=== PATIENT | male | born 1945 | race Caucasian/White ===

== ENCOUNTER 2019-06-16 21:44 | Emergency (ER) | payer MEDICARE ==
[~2019-06-16] VITALS: Ht 182.9 cm; Wt 122.5 kg
[~2019-06-16 21:44] MED LIST: AMITRIPTYLINE H25 MG PO; LANSOPRAZOLE30 MG PO; LIPITOR40 MG PO; LISINOPRIL10 MG PO
--- OUTSIDE RECORDS SUMMARY | 2019-06-16 21:48 | XMS REPORT | Encounter Summary ---
Author Organization Unknown Address [address] [place] [address] Phone [phone] Care Team Providers Care Vocational Teacher Name Role Phone Dr. Mike Farias 3 [phone] Jacques Figueroa MD 107 [phone] Niraj Castillo DPM 120 [phone] Reason for Visit other - see typed reason Instructions 1. Restless legs restless legs syndrome: care instructi ons ropinirole 3 mg tablet 2. Atrial fibrillation 3. Hyperlipidemia high cholesterol: care instructions 4. Thrombocytopenic disorder 5. Type 2 diabetes mellitus 6. Benign essential hypertension 7. Body mass index 30+ - obesity body mass index: care instructions learning about healthy weight Discussion Note: None recorded. Plan of Care Reminders Provider Appointments Return to Office on or around 06/18/2018 Mike Mondragon MD Est Patient 09/06/2018 4:30PM Mike Mondragon MD Lab None recorded. Referral None recorded. Procedures None recorded. Surgeries None recorded. Imaging None recorded. Medications Name Start Date amitriptyline 10 mg tablet TAKE 1 TABLET BY MOUTH EVERY DAY Eliquis 5 mg tablet Take 1 tablet twice a day by oral route. glipizide 5 mg tablet Take 0.5 tablets twice a day by oral route. lisinopril 20 mg tablet Take 1 tablet every day by oral route. metoprolol tartrate 50 mg tablet Take 0.5 tablets twice a day by oral route as directed for 90 days. omeprazole 40 mg capsule,delayed release TAKE 1 CAPSULE BY MOUTH TWICE DAILY DIRECTED ropinirole 2 mg tablet 1 HS ropinirole 3 mg tablet Take 1 tablet as needed by oral route at bedtime for 30 days. Medications Administered None recorded. Vitals Height Weight BMI Blood Pressure 6 ft 266.2 lbs 36.1 kg/m2 116/72 mm[Hg] Lab Results None recorded. Allergies Code Code System Name Reaction Severity Status Onset NKDA Problems Name Status Onset Date Source Hyperlipidemia Active 10/27/2015 Anxiety Active 10/27/2015 Hypertensive Disorder Active 10/27/2015 Gastroesophageal Reflux Disease Active 10/27/2015 Chronic Back Pain Active 10/27/2015 Paroxysmal Atrial Fibrillation Active 08/31/2016 Procedures Date Name Performed by 02/07/2014 Cataract Surgery Complex Information not available 02/08/2008 Colonoscopy with Biopsy Information not available 02/08/1952 Appendectomy Information not avai lable Vaccine List Vaccine Type influenza, high dose seasonal 02/17/20160.5 mL pneumococcal conjugate PCV 13 02/17/2016 pneumococcal polysaccharide PPV23 03/23/20170.5 mL zoster 08/31/20160.65 mL Social History Smoking Status Never Smoker Past Encounters 06/09/2018 Restless Legs; Atrial Fibrillation; Hyperlipidemia; Thrombocytopenic Disorder; Type 2 Diabetes Mellitus; Benign Essential Hypertension; Body Mass Index 30+ - Obesity Mike René Mondragon MD: [address] [place] [address], Ph. History of Present Illness Note:F/u on dm, HLD and HTN. Glucose readings at home 100s. Non compliant with meds. Lost 4 lbs since last visit. <div>Recently diagnosed with RLS by the sleep specialist, doing better, however pt thinks that he needs a higher dosage of ropinirole. No side effects with meds.</div> Review of Systems Comprehensive General Adult ROS Reported By: Patient Constitutional: Constitutional: no fever Eyes: Eyes: no vision change Cardiovascular: Cardiovascular: no chest jailyn n, no shortness of breath when walking, no shortness of breath when lying down, no palpitations, no lightheadedness Respiratory: Respiratory: no cough, no wh eezing, no shortness of breath Gastrointestinal: Gastrointestinal: no abdomin al pain, no nausea, no vomiting, no constipation, no diarrhea Musculoskeletal: Musculoskeletal: no swelling in the extremities Integumentary: Skin: no rashes Neurologic: Neurologic: no loss of consc iousness, no headaches Physical Exam General Adult Exam (male) Reported By: Patient Constitutional: General Appearance: healthy- appearing, obese. Level of Distress: NAD Psychiatric: Insight: good judgement. Men marko Status: active and alert, normal mood, normal affect. Orientation: to time, to place, to person. Memory: recent memory normal, remote memory normal Eyes: Lids and Conjunctivae: non-i njected, no discharge ENMT: Oropharynx: moist mucous mem branes Neck: Neck: supple, trachea midlin e. Thyroid: no enlargement, non-tender Lungs: Auscultation: breath sounds normal Cardiovascular: Heart Auscultation: normal S 1, normal S2, no murmurs, irregularly irregular. Neck vessels: no carotid bruits Musculoskeletal:: Motor Strength and Tone: nor mal tone. Joints, Bones, and Muscles: normal movement of all extremities, no malalignment. Extremities: no edema
--- OUTSIDE RECORDS SUMMARY | 2019-06-16 21:48 | XMS REPORT | Encounter Summary ---
Author Organization Unknown Address [address] [place] [address] Phone [phone] Care Team Providers Care Climate Change Analyst Name Role Phone Dr. Mike Farias 3 [phone] Jacques Figueroa MD 107 [phone] Niraj Castillo DPM 120 [phone] Reason for Visit Hypertensive disorder Instructions 1. Hypertensive disorder 2. Body mass index 30+ - obesity body mass index: care instructions learning about healthy weight 3. Influenza vaccination declined Discussion Note: None recorded. Plan of Care Reminders Provider Appointments Return to Office on or around 02/28/2019 Mike Mondragon MD Lab None recorded. Referral None recorded. Procedures None recorded. Surgeries None recorded. Imaging None recorded. Medications Name Start Date amitriptyline 10 mg tablet TAKE 1 TABLET BY MOUTH EVERY DAY carvedilol 6.25 mg tablet Take 1 tablet twice a day by oral route for 90 days. Eliquis 5 mg tablet Take 1 tablet twice a day by oral route. glipizide 5 mg tablet Take 0.5 tablets twice a day by oral route. lisinopril 30 mg tablet omeprazole 40 mg capsule,delayed release Take 1 capsule every day by oral route. ropinirole 3 mg tablet TAKE 1 TABLET BY MOUTH EVERY DAY AT BEDTIME NEEDED Medications Administered None recorded. Vitals Height Weight BMI Blood Pressure 6 ft 274 lbs 37.2 kg/m2 126/86 mm[Hg] Results Lab Results None recorded. Allergies Code Code System Name Reaction Severity Status Onset NKDA Problems Name Status Onset Date Source Hyperlipidemia Active 10/27/2015 Anxiety Active 10/27/2015 Hypertensive Disorder Active 10/27/2015 Gastroesophageal Reflux Disease Active 10/27/2015 Chronic Back Pain Active 10/27/2015 Paroxysmal Atrial Fibrillation Active 08/31/2016 Morbid Obesity Active 11/17/2018 Extreme Obesity with Alveolar Hypoventilation Active Thrombocytopenic Disorder Active 11/17/2018 Depressive Disorder Active 11/17/2018 Peripheral Vascular Disease Active 11/17/2018 Chronic Kidney Disease Stage 3 Active 11/17/2018 Procedures Date Name Performed by 02/07/2014 Cataract Surgery Complex Information not available 02/08/1952 Appendectomy Information not avai lable Colonoscopy Information not avai lable Colonoscopy Information not avai lable Colonoscopy with Biopsy Information not available Vaccine List Vaccine Type influenza, high dose seasonal 02/17/20160.5 mL pneumococcal conjugate PCV 13 02/17/2016 pneumococcal polysaccharide PPV23 03/23/20170.5 mL zoster 08/31/20160.65 mL Social History Tobacco Smoking Status Never Smoker Past Encounters 11/24/2018 Hypertensive Disorder; Body Mass Index 30+ - Obesity; Influenza Vaccination Declined Mike Mondragon MD: [address] [place] [address], Ph. 11/08/2018 Hypertensive Disorder Mike Mondragon MD: [address] [place] [address], Ph. History of Present Illness Note:F/u on htn. Compliant with meds. Non compliant with diet or exercise. BPs at home 150s/90s. No side effects with meds. No new concerns. Pt was switched to carvedilol by the mirror framer. Metoprolol was d/c. Review of Systems Comprehensive General Adult ROS Reported By: Patient Cardiovascular: Cardiovascular: no chest jailyn n, no palpitations, no lightheadedness Respiratory: Respiratory: no cough, no wh eezing, no shortness of breath Gastrointestinal: Gastrointestinal: no abdomin al pain, no nausea, no vomiting, no constipation, no diarrhea Musculoskeletal: Musculoskeletal: no muscle a ches, no swelling in the extremities Neurologic: Neurologic: no loss of consc iousness, no headaches Psychiatric: Psych: no depression, no alc ohol abuse, no anxiety, no suicidal thoughts Endocrine: Endocrine: no fatigue Physical Exam General Adult Exam (male) Reported [...] midlin e. Thyroid: no enlargement, non-tender Lungs: Respiratory effort: no dyspn ea. Auscultation: breath sounds normal Cardiovascular: Heart Auscultation: normal S 1, normal S2, no murmurs, irregularly irregular. Neck vessels: no carotid bruits Musculoskeletal:: Joints, Bones, and Muscles: normal movement of all extremities, no bony abnormalities, no malalignment. Extremities: no edema Neurologic: Coordination and Cerebellum: no tremor
--- OUTSIDE RECORDS SUMMARY | 2019-06-16 21:48 | XMS REPORT ---
Author Author [facility] Organization [facility] Address Unknown Phone Unavailable Care Team Providers Care Sap Portal Consultant Name Role Phone Unavailable Unavailable Problems Condition Name Condition Details Condition Category Status Onset Date Resolution Date Last Treatment Date Treating Clinician Comments Morbid obesity Morbid Obesity Problem Active 2018-11-17 00:00:00 Extreme obesity with alveolar hypoventilation Extreme Obesity with Alveolar Hypoventilation Problem Active 2018-11-17 00:00:00 Thrombocytopenic disorder Thrombocytopenic Disorder Problem Ac tive 2018-11-17 00:00:00 Depressive disorder Depressive Disorder Problem Active 2018-11-17 00:00 :00 Peripheral vascular disease Peripheral Vascular Disease Problem Active 2018-11-17 00:00:00 Chronic kidney disease stage 3 Chronic Kidney Disease Stage 3 Probl em Active 2018-11-17 00:00:00 Paroxysmal atrial fibrillation Paroxysmal Atrial Fibrillation Probl em Active 2016-08-31 00:00:00 Hyperlipidemia Hyperlipidemia Problem Active 2015-10-27 00:00:00 Anxiety Anxiety Problem Active 2015-10-27 00:00:00 Hypertensive disorder Hypertensive Disorder Problem Active 201 07-16-18 00:00:00 Gastroesophageal reflux disease Gastroesophageal Reflux Disease Pro blem Active 2015-10-27 00:00:00 Chronic back pain Chronic Back Pain Problem Active 2015-10-27 00:00:00 Allergies, Adverse Reactions, Alerts This patient has no known allergies or adverse reactions. Medications Ordered Medication Name Filled Medication Name Start Date Stop Da te Current Medication? Ordering Clinician Indication Dosage Frequency Signature (SIG) Comments Components amitriptyline 10 mg tablet TAKE 1 TABLET BY MOUTH EVER Y DAY amitriptyline 10 mg tablet TAKE 1 TABLET BY MOUTH EVERY DAY No amitriptyline 10 mg tablet TAKE 1 TABLET BY MOUTH EVERY DAY carvedilol 6.25 mg tablet Take 1 tablet twice a day by oral route for 90 days. carvedilol 6.25 mg tablet Take 1 tablet twice a day by oral route for 90 days. No 1 BID carvedilol 6.25 mg tablet Take 1 tablet twice a day by oral route for 90 days. Eliquis 5 mg tablet Take 1 tablet twice a day by oral route. Eliquis 5 mg tablet Take 1 tablet twice a day by oral route. No Eliquis 5 mg tablet Take 1 tablet twice a day by oral route. glipizide 5 mg tablet Take 0.5 tablets twice a day by oral route. glipizide 5 mg tablet Take 0.5 tablets twice a day by oral route. No .5 BID glipizide 5 mg tablet Take 0.5 tablets twice a day by oral route. lisinopril 30 mg tablet lisinopril 30 mg tablet No lisinopril 30 mg tablet omeprazole 40 mg capsule,delayed release Take 1 capsule every day by oral route. omeprazole 40 mg capsule,delayed release Take 1 capsule every day by oral route. No 1capsule(s) Q1D omeprazole 4 0 mg capsule,delayed release Take 1 capsule every day by oral route. ropinirole 3 mg tablet TAKE 1 TABLET BY MOUTH EVERY DA Y AT BEDTIME NEEDED ropinirole 3 mg tablet TAKE 1 TABLET BY MOUTH EVERY DAY AT BEDTIME NEEDED No ropinirole 3 m g tablet TAKE 1 TABLET BY MOUTH EVERY DAY AT BEDTIME NEEDED Immunizations Ordered Immunization Name Filled Immunization Name Date Sta Comments pneumococcal polysaccharide PPV23 pneumococcal polysaccharid e PPV23 2017-03-23 16:36:00 Completed zoster zoster 2016-08-31 10:30:00 Completed influenza, high dose seasonal influenza, high dose seasonal 2016 14:38:25 Completed pneumococcal conjugate PCV 13 pneumococcal conjugate PCV 13 2016 00:00:00 Completed Vital Signs Vital Name Observation Time Observation Value Comments BP Diastolic 2018-11-24 00:00:00 86 mm[Hg] Height 2018-11-24 00:00:00 72 [in_i] BP Systolic 2018-11-24 00:00:00 126 mm[Hg] Body Weight 2018-11-24 00:00:00 274 [lb_av] BP Diastolic 2018-11-08 00:00:00 99 mm[Hg] Height 2018-11-08 00:00:00 72 [in_i] BP Systolic 2018-11-08 00:00:00 151 mm[Hg] Body Weight 2018-11-08 00:00:00 272.4 [lb_av] BP Diastolic 2018-09-06 00:00:00 78 mm[Hg] Height 2018-09-06 00:00:00 72 [in_i] BP Systolic 2018-09-06 00:00:00 116 mm[Hg] Body Weight 2018-09-06 00:00:00 271 [lb_av] BP Diastolic 2018-06-09 00:00:00 72 mm[Hg] Height 2018-06-09 00:00:00 72 [in_i] BP Systolic 2018-06-09 00:00:00 116 mm[Hg] Body Weight 2018-06-09 00:00:00 266.2 [lb_av] BP Diastolic 2018-03-22 00:00:00 82 mm[Hg] Height 2018-03-22 00:00:00 72 [in_i] BP Systolic 2018-03-22 00:00:00 128 mm[Hg] Body Weight 2018-03-22 00:00:00 270 [lb_av] Procedures and Interventions Procedure Date / Time Performed Performing Clinici an Colonoscopy 2015-02-07 00:00:00 Cataract Surgery Complex 2014-02-07 00:00:00 Colonoscopy with Biopsy 2008-02-08 00:00:00 Appendectomy 1951-02-08 00:00:00 Encounters Start Date/Time End Date/Time Encounter Type Admission Type [facility] Care Department Encounter ID 2018-11-24 00:00:00 2018-11-24 00:00:00 Mike bailey MD: [address] [place] [address], Ph. [facility] [id number] 2018-11-08 00:00:00 2018-11-08 00:00:00 Mike bailey MD: [address] [place] [address], Ph. [facility] [id number] 2018-09-06 00:00:00 2018-09-06 00:00:00 Mike bailey MD: [address] [place] [address], Ph[address] [facility] [id number] 2018-06-09 00:00:00 2018-06-09 00:00:00 Mike bailey MD: [address] [place] [address], Ph[address] [facility] [id number] 2018-03-22 00:00:00 2018-03-22 00:00:00 Mike bailey MD: [address] [place] [address], Ph[address] [facility] [id number]
--- OUTSIDE RECORDS SUMMARY | 2019-06-16 21:48 | XMS REPORT | Encounter Summary ---
Author Organization Unknown Address [address] [place] [address] Phone [phone] Care Team Providers Care Tool Lapper Hand Name Role Phone Dr. Mike Farias 3 [phone] Vance Aviles MD 82 [phone] Jacques Figueroa MD 107 [phone] Niraj Castillo DPM 120 [phone] Reason for Visit Hyperlipidemia; Anxiety; Hypertensive di sorder; Gastroesophageal reflux disease Instructions 1. Type II diabetes mellitus uncontrolle d type 2 diabetes: care instructions HbA1c (hemoglobin A1c), blood 2. Hypertensive disorder 3. Hyperlipidemia high cholesterol: care instructions CMP, serum or plasma lipid panel, serum 4. Anxiety 5. Gastroesophageal reflux disease 6. Morbid obesity 7. Thrombocytopenic disorder 8. Major depressive disorder 9. Peripheral vascular disease 10. Atrial fibrillation 11. Alcohol consumption screening learning about alcohol misuse 12. Depression screening learning about depression 13. Depression screening positive learning about depression learning about mood disorders 14. Obstructive sleep apnea syndrome 15. Recurrent falls Discussion Note: None recorded. Plan of Care Reminders Provider Appointments Return to Office on or around 06/18/2018 Mike Mondragon MD Lab HbA1C (Hemoglobin a1C), Blood 03/22/2018 [facility] Laboratory CMP, Serum or Plasma 03/22/2018 [facility] Lipid Panel, Serum 03/22/2018 [facility] Referral None recorded. Procedures None recorded. Surgeries None recorded. Imaging None recorded. Medications Name Start Date amiodarone 200 mg tablet Take 1 tablet every day by oral route for 90 days. amitriptyline 10 mg tablet TAKE 1 TABLET BY MOUTH EVERY DAY atorvastatin 20 mg tablet TAKE 1 TABLET BY MOUTH EVERY DAY DIRECTED Eliquis 5 mg tablet Take 1 tablet twice a day by oral route. glipizide 5 mg tablet 0.5 twice a day lisinopril 40 mg tablet Take 1 tablet every day by oral route. metoprolol tartrate 50 mg tablet Take 0.5 tablets twice a day by oral route as directed for 90 days. omeprazole 40 mg capsule,delayed release TAKE 1 CAPSULE BY MOUTH EVERY DAY ropinirole 2 mg tablet 1 HS Medications Administered None recorded. Vitals Height Weight BMI Blood Pressure 6 ft 270 lbs 36.6 kg/m2 128/82 mm[Hg] Lab Results None recorded. Allergies Code [...] History Smoking Status Never Smoker Past Encounters 03/22/2018 Type II Diabetes Mellitus Uncontrolled; Hypertensive Disorder; Hyperlipidemia; Anxiety; Gastroesophageal Reflux Disease; Morbid Obesity; Thrombocytopenic Disorder; Major Depressive Disorder; Peripheral Vascular Disease; Atrial Fibrillation; Alcohol Consumption Screening; Depression Screening; Depression Screening Positive; Obstructive Sleep Apnea Syndrome; Recurrent Falls Mike AJan Mondragon MD: [address] [place] [address], Ph. History of Present Illness Note:F/u on chronic conditions. Needs refill in meds. Compliant with meds. Non compliant with diet or exercise. BS at home 140s fasting. Last a1c 8.9. BPs at home 120s/80s. No side effects with meds. No new symptoms Review of Systems Comprehensive General Adult ROS Reported By: Patient Constitutional: Constitutional: no fever Eyes: Eyes: no vision change Cardiovascular: Cardiovascular: no chest jailyn n, no shortness of breath when walking, no shortness of breath when lying down, no palpitations Respiratory: Respiratory: no cough, no wh eezing, no shortness of breath Gastrointestinal: Gastrointestinal: no abdomin al pain, no nausea, no vomiting, no constipation, no diarrhea Musculoskeletal: Musculoskeletal: no swelling in the extremities, muscle weakness Integumentary: Skin: no rashes Neurologic: Neurologic: no loss of consc iousness, no headaches Psychiatric: Psych: no depression, no alc ohol abuse, no anxiety, no suicidal thoughts Physical Exam General Adult Exam (male) Reported [...] murmurs, irregularly irregular. Neck vessels: no carotid bruits. Pulses including femoral / pedal: normal throughout Musculoskeletal:: Motor Strength and Tone: nor mal tone; Strength 4/5 in lower extremities distal and proximal. Joints, Bones, and Muscles: normal movement of all extremities, no bony abnormalities, no malalignment. Extremities: no edema Neurologic: Gait and Station: irregular gait. Sensation: abnormal. Reflexes: diminished. Coordination and Cerebellum: no tremor Back: Thoracolumbar Appearance: no rmal curvature; Non tender. Normal ROM
--- OUTSIDE RECORDS SUMMARY | 2019-06-16 21:48 | XMS REPORT | Encounter Summary ---
Author Organization Unknown Address [address] [place] [address] Phone [phone] Care Team Providers Care Tape Recording Machine Operator Name Role Phone Dr. Mike Farias 3 [phone] Vance Aviles MD 82 [phone] Jacques Figueroa MD 107 [phone] Niraj Castillo DPM 120 [phone] Reason for Visit Hyperlipidemia; Anxiety; Hypertensive di [...] MD Lab HbA1C (Hemoglobin a1C), Blood 03/22/2018 [facility] Laboratory CMP, Serum or Plasma 03/22/2018 [facility] Laboratory Lipid Panel, Serum 03/22/2018 [facility] Laboratory Referral None recorded. Procedures [...] Recurrent Falls Mike AJan Mondragon MD: [address] [place] [address], Ph. History of Present Illness Note:F/u on chronic conditions. Compliant with meds. Non compliant with diet [...]
--- OUTSIDE RECORDS SUMMARY | 2019-06-16 21:48 | XMS REPORT | Encounter Summary ---
Author Organization Unknown Address [address] [place] [address] Phone [phone] Care Team Providers Care Associate Pathologist Name Role Phone Dr. Mike Farias 3 [phone] Jacques Figueroa MD 107 [phone] Niraj Castillo DPM 120 [phone] Reason for Visit Hyperlipidemia; Hypertensive disorder; d iabetes Instructions 1. Hyperlipidemia high cholesterol: care instructions CMP, serum or plasma lipid panel, serum 2. Hypertensive disorder 3. Type 2 diabetes mellitus HbA1c (hemoglobin A1c), blood microalbumin:creatinine ratio, urine 4. Chronic kidney disease stage 3 5. Screening for malignant neoplasm of p rostate PSA, serum or plasma 6. Screening for disorder hepatitis C virus RNA, quant, PCR, ser um or plasma 7. Paroxysmal atrial fibrillation Discussion Note: None recorded. Plan of Care Reminders Provider Appointments Return to Office on or around 03/09/2019 Mike Mondragon MD Lab CMP, Serum or Plasma 09/06/[address] [facility] Laboratory Lipid Panel, Serum 09/06/2018 [facility] Laboratory HbA1C (Hemoglobin a1C), Blood 09/06/[address] [facility] Microalbumin:creatinine Ratio, Urine 09/06/2018 [facility] PSA, Serum or Plasma 09/06/[address] [facility] Hepatitis C Virus RNA, Quant, PCR, Serum or Plas ma 09/06/2018 [facility] Laboratory Referral None recorded. Procedures None recorded. [...] 90 days. omeprazole 40 mg capsule,delayed release Take 1 capsule every day by oral route. ropinirole 2 mg tablet Take 1 tablet every day by oral route at bedtime. ropinirole 3 mg tablet TAKE 1 TABLET BY MOUTH EVERY DAY AT BEDTIME NEEDED Medications Administered None recorded. Vitals Height Weight BMI Blood Pressure 6 ft 271 lbs 36.8 kg/m2 116/78 mm[Hg] Lab Results None recorded. Allergies Code [...] Tobacco Smoking Status Never Smoker Past Encounters 09/06/2018 Hyperlipidemia; Hypertensive Disorder; Type 2 Diabetes Mellitus; Chronic Kidney Disease Stage 3; Screening for Malignant Neoplasm of Prostate; Screening for Disorder; Paroxysmal Atrial Fibrillation Mike Mondragon MD: [address] [place] [address], Ph. History of Present Illness Note:F/u on chronic conditions. Compliant with meds. Non compliant with diet or exercise. Glucose readings at home 110s. Not checking BPs at home. No side effects with meds. No new concerns. Review of Systems Comprehensive General Adult ROS [...] edema Neurologic: Gait and Station: irregular gait. Coordination and Cerebellum: no tremor
--- OUTSIDE RECORDS SUMMARY | 2019-06-16 21:48 | XMS REPORT | Encounter Summary ---
Author Organization Unknown Address [address] [place] [address] Phone [phone] Care Team Providers Care Pairer Substandard Name Role Phone Dr. Miek Farias 3 [phone] Jacques Figueroa MD 107 [phone] Niraj Castillo DPM 120 [phone] Reason for Visit Hypertensive disorder Instructions 1. Hypertensive disorder metoprolol tartrate 50 mg tablet Discussion Note: None recorded. Patient educational handouts: No information available. Plan of Care Reminders Provider Appointments Est Patient 11/21/2018 1:45PM Mike Mondragon MD Lab None recorded. Referral None recorded. Procedures None recorded. Surgeries None recorded. Imaging None recorded. Medications Name Start Date amitriptyline 10 mg tablet TAKE 1 TABLET BY MOUTH EVERY DAY Eliquis 5 mg tablet Take 1 tablet twice a day by oral route. glipizide 5 mg tablet TAKE 1 TABLET BY MOUTH TWICE A DAY lisinopril 30 mg tablet metoprolol tartrate 50 mg tablet Take 1 tablet twice a day by oral route as directed for 90 days. omeprazole 40 mg capsule,delayed release Take 1 capsule every day by oral route. ropinirole 3 mg tablet TAKE 1 TABLET BY MOUTH EVERY DAY AT BEDTIME NEEDED Medications Administered None recorded. Vitals Height Weight BMI Blood Pressure 6 ft 272.4 lbs 36.9 kg/m2 (1) 151/99 mm[H g] (2) 152/93 mm[Hg] Lab Results None recorded. Allergies Code Code System Name Reaction Severity Status Onset NKDA Problems Name Status Onset Date Source Hyperlipidemia Active 10/27/2015 Anxiety Active 10/27/2015 Hypertensive Disorder Active 10/27/2015 Gastroesophageal Reflux Disease Active 10/27/2015 Chronic Back Pain Active 10/27/2015 Paroxysmal Atrial Fibrillation Active 08/31/2016 Procedures Date Name Performed by 02/07/2015 Colonoscopy Information not avai lable 02/07/2014 Cataract Surgery Complex Information not available 02/08/1952 Appendectomy Information not avai lable Colonoscopy Information not avai lable Colonoscopy with Biopsy Information not available Vaccine List Vaccine Type influenza, high dose seasonal 02/17/20160.5 mL pneumococcal conjugate PCV 13 02/17/2016 pneumococcal polysaccharide PPV23 03/23/20170.5 mL zoster 08/31/20160.65 mL Social History Tobacco Smoking Status Never Smoker Past Encounters 11/08/2018 Hypertensive Disorder Mike Mondragon MD: [address] [place] [address], Ph. History of Present Illness Note:F/u on htn. BPs running high at home in the 150s/90s. Compliant with meds. Non compliant with diet or exercise. No side effects with meds. No new concerns. Review of Systems Comprehensive General Adult ROS Reported By: Patient Eyes: Eyes: no vision change Cardiovascular: Cardiovascular: [...]
[2019-06-16] MEDS ORDERED: LIDOCAINE HCL 1% LOCAL INJ 20 ML VIAL ONE (22:10)
[2019-06-16] MEDS ORDERED: LIDOCAINE HCL 1% LOCAL INJ 20 ML VIAL INJ ONE (22:15)
== END 2019-06-16 22:40 | disposition home or self-care (01) ==
LOC: ER 21:44
DX: S61.511A Laceration without foreign body of right wrist, initial encounter (principal); W29.3XXA Contact with powered garden and outdoor hand tools and machinery, initial encounter; Y92.008 Other place in unspecified non-institutional (private) residence as the place of occurrence of the external cause; I10 Essential (primary) hypertension; E11.9 Type 2 diabetes mellitus without complications; I48.91 Unspecified atrial fibrillation; K21.9 Gastro-esophageal reflux disease without esophagitis; F41.9 Anxiety disorder, unspecified
CPT/HCPCS: 12002; 99283; J2001

== ENCOUNTER 2019-06-24 08:24 | Emergency (ER) | payer MEDICARE ==
[~2019-06-24] VITALS: Ht 182.9 cm; Wt 122.5 kg
--- OUTSIDE RECORDS SUMMARY | 2019-06-24 08:27 | XMS REPORT ---
Author Author [facility] t Organization [facility] Address [address] [place] [address] Phone Unavailable Care Team Providers Care Uncrater Name Role Phone MD WALI FALK PCP Advance Directives Directive Decision Effective Date Termination Date Comments Sour ce Yes N/A [facility] Problems Condition Name Condition Details Condition Category Status Onset Date Resolution Date Last Treatment Date Treating Clinician Comments Source Morbid obesity Morbid Obesity Problem Active 2018-11-17 00:00:00 [facility] Extreme obesity with alveolar hypoventilation Extreme Obesity with Alveolar Hypoventilation Problem Active 2018-11-17 00:00:00 [facility] Thrombocytopenic disorder Thrombocytopenic Disorder Problem Ac tive 2018-11-17 00:00:00 [facility] Depressive disorder Depressive Disorder Problem Active 2018-11-17 00:00 :00 [facility] Peripheral vascular disease Peripheral Vascular Disease Problem Active 2018-11-17 00:00:00 [facility] Chronic kidney disease stage 3 Chronic Kidney Disease Stage 3 Probl em Active 2018-11-17 00:00:00 [facility] Paroxysmal atrial fibrillation Paroxysmal Atrial Fibrillation Probl em Active 2016-08-31 00:00:00 [facility] Hyperlipidemia Hyperlipidemia Problem Active 2015-10-27 00:00:00 [facility] Anxiety Anxiety Problem Active 2015-10-27 00:00:00 [facility] Hypertensive disorder Hypertensive Disorder Problem Active 201 07-16-18 00:00:00 [facility] abram Gastroesophageal reflux disease Gastroesophageal Reflux Disease Pro blem Active 2015-10-27 00:00:00 [facility] Chronic back pain Chronic Back Pain Problem Active 2015-10-27 00:00:00 [facility] Chest pain Problem 2015-04-20 00:00:00 [facility] Palpitations Problem 2015-04-20 00:00:00 [facility] Allergies, Adverse Reactions, Alerts Allergy Name Allergy Type Status Severity Reaction(s) Onset Date Inacti ve Date Treating Clinician Comments Source shellfish derived Allergy to substance Active 2015-04-20 00 :00:00 [facility] Social History Social Habit Start Date Stop Date Quantity Comments Source Sex Assigned At 1945 00:00:00 1945 00:00:00 Male [facility] Smoking Status Start Date Stop Date Source Never Smoker [facility] Medications Ordered Medication Name Filled Medication Name Start Date Stop Da te Current Medication? Ordering Clinician Indication Dosage Frequency Signature (SIG) Comments Components Source Amitriptyline Hcl Amitriptyline Hcl Yes 10 [facility] Atorvastatin Calcium (Lipitor) 40 Mg TABLET Atorvastat in Calcium (Lipitor) 40 Mg TABLET Yes 10 [facility] Lansoprazole Lansoprazole Yes 1 [facility] Lisinopril Lisinopril Yes 10 [facility] amitriptyline 10 mg tablet TAKE 1 TABLET BY MOUTH EVER Y DAY amitriptyline 10 mg tablet TAKE 1 TABLET BY MOUTH EVERY DAY No amitriptyline 10 mg tablet TAKE 1 TABLET BY MOUTH EVERY DAY [facility] carvedilol 6.25 mg tablet Take 1 tablet twice a day by oral route for 90 days. carvedilol 6.25 mg tablet Take 1 tablet twice a day by oral route for 90 days. No 1 BID carvedilol 6.25 mg tablet Take 1 tablet twice a day by oral route for 90 days. [facility] Eliquis 5 mg tablet Take 1 tablet twice a day by oral route. Eliquis 5 mg tablet Take 1 tablet twice a day by oral route. No Eliquis 5 mg tablet Take 1 tablet twice a day by oral route. [facility] glipizide 5 mg tablet Take 0.5 tablets twice a day by oral route. glipizide 5 mg tablet Take 0.5 tablets twice a day by oral route. No .5 BID glipizide 5 mg tablet Take 0.5 tablets twice a day by oral route. [facility] lisinopril 30 mg tablet lisinopril 30 mg tablet No lisinopril 30 mg tablet [facility] omeprazole 40 mg capsule,delayed release Take 1 capsule every day by oral route. omeprazole 40 mg capsule,delayed release Take 1 capsule every day by oral route. No 1capsule(s) Q1D omeprazole 4 0 mg capsule,delayed release Take 1 capsule every day by oral route. [facility] ropinirole 3 mg tablet TAKE 1 TABLET BY MOUTH EVERY DA Y AT BEDTIME NEEDED ropinirole 3 mg tablet TAKE 1 TABLET BY MOUTH EVERY DAY AT BEDTIME NEEDED No ropinirole 3 m g tablet TAKE 1 TABLET BY MOUTH EVERY DAY AT BEDTIME NEEDED [facility] Immunizations Ordered Immunization Name Filled Immunization Name Date Status Comments Source pneumococcal polysaccharide PPV23 pneumococcal polysaccharid e PPV23 2017-03-23 16:36:00 Completed [facility] zoster zoster 2016-08-31 10:30:00 Completed [facility] influenza, high dose seasonal influenza, high dose seasonal 2016 14:38:25 Completed [facility] pneumococcal conjugate PCV 13 pneumococcal conjugate PCV 13 2016 00:00:00 Completed [facility] Vital Signs Vital Name Observation Time Observation Value Comments Source BP Diastolic 2018-11-24 00:00:00 86 mm[Hg] [facility] Height 2018-11-24 00:00:00 72 [in_i] [facility] BMI (Body Mass Index) 2018-11-24 00:00:00 37.2 kg/m2 [facility] BP Systolic 2018-11-24 00:00:00 126 mm[Hg] [facility] Body Weight 2018-11-24 00:00:00 274 [lb_av] [facility] BP Diastolic 2018-11-08 00:00:00 99 mm[Hg] [facility] Height 2018-11-08 00:00:00 72 [in_i] [facility] BMI (Body Mass Index) 2018-11-08 00:00:00 36.9 kg/m2 [facility] BP Systolic 2018-11-08 00:00:00 151 mm[Hg] [facility] Body Weight 2018-11-08 00:00:00 272.4 [lb_av] [facility] BP Diastolic 2018-09-06 00:00:00 78 mm[Hg] [facility] Height 2018-09-06 00:00:00 72 [in_i] [facility] BMI (Body Mass Index) 2018-09-06 00:00:00 36.8 kg/m2 [facility] BP Systolic 2018-09-06 00:00:00 116 mm[Hg] [facility] Body Weight 2018-09-06 00:00:00 271 [lb_av] [facility] BP Diastolic 2018-06-09 00:00:00 72 mm[Hg] [facility] Height 2018-06-09 00:00:00 72 [in_i] [facility] BMI (Body Mass Index) 2018-06-09 00:00:00 36.1 kg/m2 [facility] BP Systolic 2018-06-09 00:00:00 116 mm[Hg] [facility] Body Weight 2018-06-09 00:00:00 266.2 [lb_av] [facility] BP Diastolic 2018-03-22 00:00:00 82 mm[Hg] [facility] Height 2018-03-22 00:00:00 72 [in_i] [facility] BMI (Body Mass Index) 2018-03-22 00:00:00 36.6 kg/m2 [facility] BP Systolic 2018-03-22 00:00:00 128 mm[Hg] [facility] Body Weight 2018-03-22 00:00:00 270 [lb_av] [facility] Weight 2019-06-16 22:01:00 270 [lb_av] [facility] BMI (Body Mass Index) 2019-06-16 22:01:00 36.6 kg/m2 [facility] Procedures Procedure Date / Time Performed Performing Clinician Sour e Colonoscopy 2015-02-07 00:00:00 [facility] Cataract Surgery Complex 2014-02-07 00:00:00 Liz lakshmi [facility] Colonoscopy with Biopsy 2008-02-08 00:00:00 [facility] Appendectomy 1951-02-08 00:00:00 [facility] Plan of Care Planned Activity Planned Date Details Comments Source Goal Patient referral [code = 8412336 ] [facility] Goal Patient referral [code = 5041670 ] [facility] Instructions Laceration [facility] Instructions Wound Care (General) [facility] Encounters Start Date/Time End Date[facility]Time [facility] Source 2019-06-16 21:44:00 2019-06-16 21:44:00 Registered Emergency Room [facility] [id number] [facility] 2018-11-24 00:00:00 2018-11-24 00:00:00 Mike bailey MD: [address] [place] [address], Ph. [facility] [id number] [facility] 2018-11-08 00:00:00 2018-11-08 00:00:00 Mike bailey MD: [place] [address], Ph. [facility] [id number] [facility] 2018-09-06 00:00:00 2018-09-06 00:00:00 Mike bailey MD: [place] [address], Ph. [facility] [id number] [facility] 2018-06-09 00:00:00 2018-06-09 00:00:00 Mike bailey MD: [place] [address], Ph. [facility] [id number] [facility] 2018-03-22 00:00:00 2018-03-22 00:00:00 Mike bailey MD: [place] [address], Ph. P [place] - [facility] [id number] [facility] Results This patient has no known results.
--- NOTE | 2019-06-24 08:39 | Emergency Department Note ---
History of Present Illnes History of Present Illness Chief Complaint: Suture Removal History of Present Illness This is a 73 year old male s/p laceration to right wrist accidentally on 06/16/19 with a blade to a reciprocating saw (saw not plugged in). got 6 sutures here, came to get sutures out. Historian: Patient Arrival Mode: Car Additional Treatment GAS AND OIL SERVICER: NONE Scalemaker Required: No Onset (how long ago): day(s) (8) Location: right wrist Quality: no pain Severity: mild Context: recent illness Exacerbating factors: none Associated symptoms: denies other symptoms Treatments prior to arrival: none Past Medical/Family History Physician Review I have reviewed the patient's past medical and family history. Any updates have been documented here. Past Medical History Recent Fever: No Clinical Suspicion of Infectio: No New/Unexplained Change in Ment: No Past Medical History: Hypertension, Diabetes, A-Fib Other Medical History: gerd, aniexty; Other Surgery: EYE SURGERY Social History Smoking Cessation: Never Smoker Counseling Performed: No Alcohol Use: Occasional Any Illegal Drug Use: No TB Exposure/Symptoms: No Physically hurt or threatened: No Family History Family history of heart diseas: No Other Last Tetanus: UTD Review of Systems Review of Systems Constitutional: no symptoms EENTM: no symptoms Cardiovascular: no symptoms Respiratory: no symptoms Gastrointestinal: no symptoms Genitourinary: no symptoms Musculoskeletal: no symptoms Neurological: no symptoms Psychological: no symptoms Endocrine: no symptoms Hematological/Lymphatic: no symptoms Review of other systems All other systems reviewed and negative. Physical Exam Related Data Allergies: Coded Allergies: shellfish derived (Verified Allergy, Unknown, 06/24/19) Triage Vital Signs Vital Signs Date Time Temp Pulse Resp B/P (MAP) Pulse Ox O2 Delivery O2 Flow Rate FiO2 06/24/19 08:30 97.8 99 18 98 Physical Exam CONSTITUTIONAL Constitutional: well-developed, well-nourished HENT HENT: normocephalic, atraumatic, oropharynx clear/moist, nose normal HENT L/R: left ext ear normal, right ext ear normal EYES Eyes: PERRL, conjunctivae normal NECK Neck: ROM normal PULMONARY Pulmonary: effort normal, breath sounds normal CARDIOVASCULAR Cardiovascular: regular rhythm, heart sounds normal, capillary refill normal, n ormal rate GASTROINTESTINAL Abdominal: soft, nontender, bowel sounds normal GENITOURINARY Genitourinary: exam deferred SKIN Skin: warm, dry, other (healed laceration right wrist with 6 sutures intact, no evid of infection) MUSCULOSKELETAL Musculoskeletal: ROM normal NEUROLOGICAL Neurological: alert, oriented x 3, no gross motor or sensory deficits PSYCHOLOGICAL Psychological: mood/affect normal, judgement normal Procedures Laceration Number of sutures: 6 Additional comments 6 sutures removed without problem, no complications, steri-strips applied Critical Care Time Subsequent provider I assumed direction of critical care for this patient from another provider of my specialty. Assessment & Plan Assessment & Plan Problems: (1) Encounter for removal of sutures Depart Disposition: HOME, SELF-CARE Last Vital Signs Date Time Temp Pulse Resp B/P (MAP) Pulse Ox O2 Delivery O2 Flow Rate FiO2 06/24/19 08:30 97.8 99 18 98 Home Meds Reported Medications Lansoprazole (LANSOPRAZOLE) 30 Mg Capsule.dr, 1 TAB PO DAILY 04/20/15 Amitriptyline Hcl (AMITRIPTYLINE HCL) 25 Mg Tablet, 10 MG PO DAILY, #30 TAB 04/20/15 Lisinopril (LISINOPRIL) 10 Mg Tablet, 10 MG PO DAILY, #30 TAB 04/20/15 Atorvastatin Calcium (LIPITOR) 40 Mg Tablet, 10 MG PO DAILY 09/04/13 Medications in the ED Carvedilol 12.5 mg ONCE ONCE PO ; Start 06/24/19 at 08:45; Stop 06/24/19 at 08:46; Status UNV RACHELLE ROOT MD June 24, 2019 08:39
--- NOTE | 2019-06-24 08:40 | NUR ---
IN TRIAGE PATIENT BP 190/138, PATIENT DID NOT TAKE HIM MEDICATION THIS MORNING FOR HIS BLOOD PRESSURE. STATES IT ALWAYS RUNS. DR. ROOT AWARE, ORDERING COREG. PATIENT DENIES ANY CHEST PAIN, SHORTNESS OF BREATH, ANY VISUAL DISTURBANCES.
[2019-06-24] MEDS ORDERED: CARVEDILOL 12.5 MG TAB ONE (08:43)
[2019-06-24] MEDS ORDERED: CARVEDILOL 12.5 MG TAB PO NR (08:45)
== END 2019-06-24 09:11 | disposition home or self-care (01) ==
LOC: ER 08:24
DX: Z48.02 Encounter for removal of sutures (principal)
CPT/HCPCS: 99282; S0630

== ENCOUNTER 2023-11-09 18:37 | Emergency (ER) | payer MEDICARE ==
[~2023-11-09] VITALS: Ht 182.9 cm; Wt 122.5 kg
[2023-11-09 19:34] VITALS: PULSE 99; RESP 18; TEMP 98.6
[2023-11-09] MEDS: DIPHTH,PERTUSS(ACELL),TET VAC 0.5 ML SYRINGE IM ONE (22:04)
[2023-11-09] MEDS: BUPIVACAINE HCL 0.25% 10ML MPF VIAL INJ ONE (22:05)
[2023-11-09] MEDS ORDERED: TETANUS/DIPHTHERIA TOX ADULT 0.5 ML SYR ONE (22:08)
[2023-11-09] MEDS ORDERED: CEPHALEXIN500 MG PO (22:53)
[2023-11-09] MEDS ORDERED: ULTRAM 50MG50 MG PO (22:53)
[2023-11-09] MEDS ORDERED: BACITRACIN ZINC 0.9GM TP ONE (22:58)
[2023-11-09 23:02] VITALS: BP 164/108; PULSE 88; RESP 16; O2SAT 99
[2023-11-09] MEDS: BACITRACIN ZINC 0.9GM TP ONE (23:07)
== END 2023-11-09 23:02 | disposition home or self-care (01) ==
LOC: ER 19:34
DX: S62.665B Nondisplaced fracture of distal phalanx of left ring finger, initial encounter for open fracture (principal); W23.2XXA Caught, crushed, jammed or pinched between a moving and stationary object, initial encounter; Y92.89 Other specified places as the place of occurrence of the external cause; I10 Essential (primary) hypertension; E11.9 Type 2 diabetes mellitus without complications; I48.91 Unspecified atrial fibrillation; K21.9 Gastro-esophageal reflux disease without esophagitis; F41.9 Anxiety disorder, unspecified
CPT/HCPCS: 90471; 90714; 99283